=== PATIENT | female | born 1985 | race Two or more races ===

== ENCOUNTER 2020-10-17 06:09 | Emergency (ER) | payer OTHER, SELFPAY ==
[~2020-10-17] VITALS: Ht 162.6 cm; Wt 63.4 kg
[2020-10-17] MEDS ORDERED: COMBIVENT RESPIMAT 100-20MCG INHALER 4GM INH STA (06:48)
[2020-10-17] MEDS ORDERED: ACETAMINOPHEN 500 MG TAB PO ONE (07:00)
[2020-10-17] MEDS ORDERED: NS 1,000 ML IV ONE (07:00)
[2020-10-17] MEDS ORDERED: METOCLOPRAMIDE INJ 10MG/2ML VIAL (J2765 PER 1) IV ONE (07:00)
--- NOTE | 2020-10-17 07:21 | REPVR ---
PROCEDURE INFORMATION: Exam: XR Chest, 1 View Exam date and time: 10/17/2020 7:00 AM Age: 35 years old Clinical indication: Other: Syncope/near-syncope TECHNIQUE: Imaging protocol: XR of the chest Views: 1 view. COMPARISON: No relevant prior studies available. FINDINGS: Lungs: The lungs are clear. There is no consolidation or mass. Subcutaneous apparent lucency seen in the lateral chest hoyt felt to be artifactual due to air trapped between skin folds. Pleural space: Unremarkable. No pleural effusion. No pneumothorax. Heart/Mediastinum: Unremarkable. No cardiomegaly. Bones/joints: Unremarkable. IMPRESSION: No focal consolidation. Electronically signed by: Kevin Merino On 10/17/2020 07:21:23 AM
--- NOTE | 2020-10-17 07:41 | ECGEPIP ---
[facility] - ED Test Date: 2020-10-17 Pat Name: CHELSEA CARY Department: Room: - Gender: Female [employer] Sales Representative: YOEL : 1985 Requested By: KEVIN CARTER Order Number: [id number] Reading MD: Jordana Chacko Measurements Intervals [place] Rate: 61 P: 32 DE: 124 QRS: 26 QRSD: 88 T: 15 QT: 416 QTc: 421 Interpretive Statements SINUS RHYTHM WITH SINUS ARRHYTHMIA NSTTW abnormalities No prior baseline artifact may affect interpretation Electronically Signed on 10-17-2020 7:41:29 EST by Jordana Chacko
[2020-10-17 08:07] LABS: BASO % 0.3 % (0.0-1.0); EOS # 0.1 10^3/uL (0.0-0.5); EOS % 1.1 % (0.0-3.0); HEMATOCRIT 33.6 % (36.0-47.0); HEMOGLOBIN 10.5 g/dl (12.0-15.5); LYMPH # 1.6 10^3/uL (1.5-5.0); LYMPH % 24.3 % (24.0-44.0); MEAN CORPUSCULAR HEMOGLOBIN 27.6 pg (27.0-33.0); MEAN CORPUSCULAR HGB CONC 31.3 g/dl (32.0-36.5); MEAN CORPUSCULAR VOLUME 88.2 fl (80.0-96.0); MONO # 0.5 10^3/uL (0.0-0.8); MONO % 6.8 % (0.0-5.0); NEUTROPHILS # 4.5 10^3/uL (1.5-8.5); PLATELET COUNT, AUTOMATED 243 10^3/uL (150-450); RED BLOOD COUNT 3.81 10^6/uL (4.00-5.40); WHITE BLOOD COUNT 6.7 10^3/uL (4.0-10.0)
[2020-10-17 08:21] LABS: HCG, SERUM QUALITATIVE NEGATIVE (NEGATIVE)
[2020-10-17 08:42] LABS: ALT/SGPT 32 U/L (12-78); BILIRUBIN,DIRECT < 0.1 MG/DL (0.0-0.2); BILIRUBIN,TOTAL 0.2 MG/DL (0.2-1.0); BLOOD UREA NITROGEN 15 MG/DL (7-18); CALCIUM LEVEL 7.9 MG/DL (8.5-10.1); CARBON DIOXIDE LEVEL 27 MEQ/L (21-32); CHLORIDE LEVEL 108 MEQ/L (98-107); CREATININE FOR GFR 0.48 MG/DL (0.55-1.30); GLOMERULAR FILTRATION RATE > 60.0 (>60); GLUCOSE, FASTING 88 MG/DL (70-100); POTASSIUM SERUM 4.1 MEQ/L (3.5-5.1); SODIUM LEVEL 141 MEQ/L (136-145); THYROID STIMULATING HORMONE 0.266 uIU/ML (0.358-3.740); TOTAL PROTEIN 6.1 GM/DL (6.4-8.2)
[2020-10-17] MEDS ORDERED: VENTAER INH (09:00)
[2020-10-17 09:15] VITALS: BP 101/58
== END 2020-10-17 09:37 | disposition home or self-care (01) ==
LOC: M ED 06:09 → EDBD 06:09 → M ED 09:37
DX: R05 Cough (principal); R06.02 Shortness of breath; R94.6 Abnormal results of thyroid function studies; R51.9 Headache, unspecified; R94.31 Abnormal electrocardiogram [ECG] [EKG]; J45.909 Unspecified asthma, uncomplicated; F17.210 Nicotine dependence, cigarettes, uncomplicated; Z88.0 Allergy status to penicillin; Z82.5 Family history of asthma and other chronic lower respiratory diseases
CPT/HCPCS: 36415; 71045; 80048; 80076; 84439; 84443; 84703; 85025; 93005; 93041; 94640; 94760; 96374; 99285; J2765; U0003